=== PATIENT | female | born 1990 | race African-American/Black ===

== ENCOUNTER → 2020-09-12 | Outpatient (CLI) | payer OTHER ==
[2020-09-12 11:56] LABS: ABSOLUTE NEUTROPHILS 4.6 thou/uL (1.4-8.2); BASOPHILS 0.5 % (0.0-2.0); EOSINOPHILS 0.7 % (0.0-3.0); HEMATOCRIT 40.5 % (37.0-47.0); HEMOGLOBIN 12.9 gm/dL (12.0-15.0); LYMPHOCYTES 38.8 % (24.0-44.0); MCH 23.7 pg (26.0-34.0); MCHC 31.9 g/dL (28.0-37.0); MCV 74.2 fL (80.0-100.0); MONOCYTES 7.8 % (1.0-8.0); POLYS 52.2 % (36.0-66.0); RBC 5.46 mil/uL (4.20-5.00); RDW 15.7 % (10.5-14.5); WBC 8.7 thou/uL (4.0-11.0)
[2020-09-12 12:18] LABS: ALBUMIN 4.3 g/dL (3.4-5.0); ANION GAP 11 mmol/L (7-16); BUN 10 mg/dL (7-18); CHLORIDE 104 mmol/L (98-107); CHOLESTEROL 187 mg/dL (<200); CO2 27 mmol/L (21-32); GLUCOSE 89 mg/dL (74-106); HDL CHOLESTEROL 44 mg/dL (>40); LDL CHOLESTEROL 129 mg/dL (<100); POTASSIUM 3.6 mmol/L (3.5-5.1); SGOT 19 U/L (15-37); SGPT 20 U/L (30-65); SODIUM 142 mmol/L (136-145); TC:HDL 4.3 Ratio (Not establshd); TOTAL BILIRUBIN 0.4 mg/dL (0.2-1.0); TOTAL PROTEIN 8.8 g/dL (6.4-8.2); TRIGLYCERIDE 73 mg/dL (<150); VLDL 15 mg/dL (<40)
[2020-09-12 12:43] LABS: LARGE PLATELETS FEW; PLATELET COUNT 175 thou/uL (150-400)
== END ==
LOC: LAB 11:02
PROVIDERS: ATTEND Family Medicine
DX: E78.5 Hyperlipidemia, unspecified (principal)